=== PATIENT | male | born 1990 | race Caucasian/White ===

== ENCOUNTER 2020-02-16 22:11 | Emergency (ER) | payer OTHER ==
[~2020-02-16] VITALS: Ht 177.8 cm; Wt 90.9 kg
[2020-02-16 22:15] VITALS: BP 116/62
== END 2020-02-16 22:26 | disposition left against medical advice (07) ==
LOC: EMS 22:11
DX: M25.532 Pain in left wrist (principal); Z53.21 Procedure and treatment not carried out due to patient leaving prior to being seen by health care provider